=== PATIENT | female | born 1940 | race Two or more races ===

== ENCOUNTER 2017-07-09 08:50 | Emergency (ER) | payer OTHER ==
[~2017-07-09] VITALS: Ht 157.5 cm; Wt 68.0 kg
[~2017-07-09 08:50] MED LIST: ADULT ASPIRIN81 MG; ATACAND16 MG; MEDROL DOSE PACK PO; MEDROL4 MG PO; MUCINEX1200 MG PO; SIMVASTATIN20 MG; ZITHROMAX500 MG PO; ZYRTEC10 MG PO
== END 2017-07-09 16:37 | disposition home or self-care (01) ==
LOC: ER 08:50
DX: R05 Cough (principal)

== ENCOUNTER 2017-07-18 09:24 | Outpatient (CLI) | payer OTHER | END 2017-07-18 09:28 | disposition home or self-care (01) | LOC: LAB 09:24 | DX: D68.8 Other specified coagulation defects (principal); E11.65 Type 2 diabetes mellitus with hyperglycemia; E78.2 Mixed hyperlipidemia; D64.89 Other specified anemias; E03.8 Other specified hypothyroidism ==

== ENCOUNTER 2017-07-18 11:12 | Outpatient (CLI) | payer OTHER | END 2017-07-18 15:24 | disposition home or self-care (01) | LOC: MAMO-SONO 11:12 | DX: Z12.31 Encounter for screening mammogram for malignant neoplasm of breast (principal); Z87.898 Personal history of other specified conditions; R22.2 Localized swelling, mass and lump, trunk ==

== ENCOUNTER → 2018-01-24 08:29 | Outpatient (CLI) | payer OTHER | END | disposition home or self-care (01) | LOC: LAB 08:29 | DX: E11.65 Type 2 diabetes mellitus with hyperglycemia (principal); E03.8 Other specified hypothyroidism; D68.8 Other specified coagulation defects; E78.2 Mixed hyperlipidemia; N39.0 Urinary tract infection, site not specified; R82.8 Abnormal findings on cytological and histological examination of urine ==

== ENCOUNTER 2018-05-22 09:01 | Outpatient (CLI) | payer OTHER | END 2018-05-22 09:10 | disposition home or self-care (01) | LOC: LAB 09:01 | DX: D68.8 Other specified coagulation defects (principal); D64.89 Other specified anemias; E03.8 Other specified hypothyroidism; E11.65 Type 2 diabetes mellitus with hyperglycemia ==

== ENCOUNTER → 2018-07-28 | Outpatient (CLI) | payer OTHER | END | disposition home or self-care (01) | LOC: NUCLEAR 07:00 | DX: I20.9 Angina pectoris, unspecified (principal) | CPT/HCPCS: 78452; 93017; A9500 ==

== ENCOUNTER 2018-12-25 08:17 | Outpatient (CLI) | payer OTHER | END 2018-12-25 08:20 | disposition home or self-care (01) | LOC: LAB 08:17 | DX: E11.65 Type 2 diabetes mellitus with hyperglycemia (principal); N39.0 Urinary tract infection, site not specified; D51.0 Vitamin B12 deficiency anemia due to intrinsic factor deficiency; E78.2 Mixed hyperlipidemia; E11.21 Type 2 diabetes mellitus with diabetic nephropathy; E03.8 Other specified hypothyroidism ==

== ENCOUNTER 2019-04-09 08:03 | Outpatient (CLI) | payer OTHER | END 2019-04-09 15:00 | disposition home or self-care (01) | LOC: LAB 08:03 | DX: E11.40 Type 2 diabetes mellitus with diabetic neuropathy, unspecified (principal); D64.89 Other specified anemias; N39.0 Urinary tract infection, site not specified; E78.2 Mixed hyperlipidemia; E11.65 Type 2 diabetes mellitus with hyperglycemia ==

== ENCOUNTER → 2019-04-23 | Outpatient (CLI) | payer OTHER | END | disposition home or self-care (01) | LOC: RAD 09:46 | DX: M15.4 Erosive (osteo)arthritis (principal); N18.5 Chronic kidney disease, stage 5 ==

== ENCOUNTER 2019-05-21 08:29 | Outpatient (CLI) | payer OTHER | END 2019-05-21 08:36 | disposition home or self-care (01) | LOC: LAB 08:29 | DX: D68.8 Other specified coagulation defects (principal); Z12.11 Encounter for screening for malignant neoplasm of colon; E11.65 Type 2 diabetes mellitus with hyperglycemia; D64.89 Other specified anemias; E78.2 Mixed hyperlipidemia ==

== ENCOUNTER → 2019-05-23 10:55 | Outpatient (CLI) | payer OTHER | END | disposition home or self-care (01) | LOC: LAB 10:55 | DX: D68.8 Other specified coagulation defects (principal); E11.65 Type 2 diabetes mellitus with hyperglycemia; D64.89 Other specified anemias; E78.2 Mixed hyperlipidemia; Z12.11 Encounter for screening for malignant neoplasm of colon ==

== ENCOUNTER 2019-07-06 08:40 | Outpatient (CLI) | payer OTHER | END 2019-07-06 08:44 | disposition home or self-care (01) | LOC: LAB 08:40 | DX: N39.0 Urinary tract infection, site not specified (principal); D64.89 Other specified anemias; D68.8 Other specified coagulation defects; E03.8 Other specified hypothyroidism; E78.2 Mixed hyperlipidemia ==

== ENCOUNTER → 2019-07-06 | Outpatient (CLI) | payer OTHER | END | disposition home or self-care (01) | LOC: TOM 10:23 | DX: C16.8 Malignant neoplasm of overlapping sites of stomach (principal); K57.10 Diverticulosis of small intestine without perforation or abscess without bleeding ==

== ENCOUNTER 2020-07-03 09:36 | Outpatient (CLI) | payer OTHER | END 2020-07-03 10:19 | disposition home or self-care (01) | LOC: MAMO-SONO 09:36 | PROVIDERS: ATTEND Specialist | DX: Z12.31 Encounter for screening mammogram for malignant neoplasm of breast (principal); N64.59 Other signs and symptoms in breast ==

== ENCOUNTER 2020-08-05 09:49 | Outpatient (CLI) | payer OTHER | END 2020-08-05 10:07 | disposition home or self-care (01) | LOC: TOM 09:49 | PROVIDERS: ATTEND Specialist | DX: M43.17 Spondylolisthesis, lumbosacral region (principal); M51.87 Other intervertebral disc disorders, lumbosacral region ==

== ENCOUNTER 2022-02-25 09:48 | Outpatient (CLI) | payer OTHER | END 2022-02-25 09:50 | disposition home or self-care (01) | LOC: MAMO-SONO 09:48 | PROVIDERS: ATTEND Specialist | DX: Z12.31 Encounter for screening mammogram for malignant neoplasm of breast (principal); N60.39 Fibrosclerosis of unspecified breast ==

== ENCOUNTER 2022-03-31 11:23 | Outpatient (CLI) | payer OTHER | END 2022-03-31 11:28 | disposition home or self-care (01) | LOC: MRI 11:23 | PROVIDERS: ATTEND Psychiatry & Neurology Neurology | DX: R41.3 Other amnesia (principal) | CPT/HCPCS: 70551; 70552 ==

== ENCOUNTER → 2022-10-18 08:14 | Outpatient (CLI) | payer OTHER | END | disposition home or self-care (01) | LOC: LAB 08:14 | PROVIDERS: ATTEND Specialist | DX: D64.89 Other specified anemias (principal); E03.8 Other specified hypothyroidism; R19.5 Other fecal abnormalities; N39.9 Disorder of urinary system, unspecified; E11.21 Type 2 diabetes mellitus with diabetic nephropathy; Z13.220 Encounter for screening for lipoid disorders ==

== ENCOUNTER 2022-10-29 07:38 | Outpatient (CLI) | payer OTHER | END 2022-10-29 07:40 | disposition home or self-care (01) | LOC: NUCLEAR 07:38 | PROVIDERS: ATTEND Internal Medicine Cardiovascular Disease | DX: G45.9 Transient cerebral ischemic attack, unspecified (principal) ==

== ENCOUNTER 2023-02-03 08:33 | Outpatient (CLI) | payer OTHER | END 2023-02-03 08:34 | disposition home or self-care (01) | LOC: LAB 08:33 | PROVIDERS: ATTEND Internal Medicine Cardiovascular Disease | DX: E03.8 Other specified hypothyroidism (principal); E11.69 Type 2 diabetes mellitus with other specified complication; D64.89 Other specified anemias; Z13.220 Encounter for screening for lipoid disorders; M00.80 Arthritis due to other bacteria, unspecified joint; N39.9 Disorder of urinary system, unspecified ==

== ENCOUNTER 2023-02-03 09:39 | Outpatient (CLI) | payer OTHER | END 2023-02-03 09:43 | disposition home or self-care (01) | LOC: RAD 09:39 | PROVIDERS: ATTEND Specialist | DX: J44.1 Chronic obstructive pulmonary disease with (acute) exacerbation (principal) ==